=== PATIENT | female | born 1960 | race Caucasian/White ===

== ENCOUNTER 2023-11-19 11:18 | Emergency (ER) | payer BC, SELFPAY ==
[2023-11-19 11:32] VITALS: BP 177/86; PULSE 90; RESP 16; TEMP 37.1; O2SAT 99
--- NOTE | 2023-11-19 13:07 | ED.URI ---
HPI - URI/Sore Throat General Chief Complaint: Upper Respiratory Infection Stated Complaint: Shortness of Breath/Cough/Headache Time Seen by Provider: 11/19/23 12:55 Source: patient, RN notes reviewed and old records reviewed Mode of arrival: ambulatory Limitations: no limitations History of Present Illness HPI Narrative: A 63-year-old female presents to [facility] with increased cough, headache, increased shortness of breath for the past 4-5 days. Patient reports that she has history of asthma and her boyfriend was using some [place] paint aggravated her asthma and has been using her inhaler more since exposure. Patient also reports that she has headache with some white nasal drainage with some occasional flecks of blood noted has been using Flonase nasal pray. Patient reports no known fevers, reports feels increased fatigue and feels achy. MD elicited complaint: cough and other (shortness of breath, headache) Pertinent past history: asthma and seasonal allergies Onset (ago): day(s) (4-5 days) Pain scale (0-10): 4 Description of mucous: other (white some flecks of bloood) Able to tolerate fluids by mouth: Yes Treatments prior to arrival: other (inhalers, flonase) Related Data Home Medications Medication Instructions Recorded Confirmed Symbicort 11/19/23 albuterol sulfate 90 mcg/actuation inhalation 11/19/23 aerosol inhaler alprazolam 0.25 mg tablet mg 11/19/23 amlodipine 5 mg tablet mg 11/19/23 atorvastatin 20 mg tablet mg 11/19/23 epinephrine 0.3 mg/0.3 mL 11/19/23 injection, auto-injector hydrochlorothiazide 25 mg tablet mg 11/19/23 lisinopril 5 mg tablet mg 11/19/23 metformin 500 mg tablet,extended mg PO 11/19/23 release 24 hr potassium citrate 10 mEq (1,080 meq PO 11/19/23 mg) tablet,extended release valacyclovir 1 gram tablet mg 11/19/23 Allergies Allergy/AdvReac Type Severity Reaction Status Date / Time latex Allergy Unknown Verified 11/19/23 12:17 nitrofurantoin Allergy Unknown Verified 11/19/23 12:17 [From Macrobid] nut - unspecified Allergy Anaphylaxis Verified 11/19/23 12:16 Sulfa (Sulfonamide Allergy Other Verified 11/19/23 12:17 Antibiotics) Review of Systems Review of Systems: CONSTITUTIONAL: Denies malaise, chills, sweats, or fever. EYES: Denies visual changes, redness, or discharge. ENT: Reports rhinorrhea, congestion, sinus pain,no otalgia and no sore throat. CARDIOVASCULAR: Denies chest pain, palpitations, or edema. RESPIRATORY: Reports cough.?reports some increased dyspnea. GASTROINTESTINAL: Denies abdominal pain, nausea, vomiting, diarrhea SKIN: Denies rash or itching. MUSCULOSKELETAL: Denies myalgia. NEUROLOGIC:Reports headache. All systems reviewed & are unremarkable except as noted in HPI and below PMFSH Past Medical History Medical History (Updated 11/21/23 @ 10:40 by Deb Escalera NP) Anxiety Asthma Elevated cholesterol Hypertension Social History Social History (Updated 11/21/23 @ 10:39 by Deb Escalera NP) Smoking status: Never smoker Alcohol intake: current Alcohol use details: rare Substance use type: does not use Gender identity (if verbalized by the patient): Female Comments At time of signature, agree with nursing past medical, surgical, social and family history. There is no relevant family history pertinent to the presenting complaint Exam Narrative: GENERAL: Well-appearing, well-nourished, and in no acute distress. HEAD: Normocephalic EYES: PERRLA, conjunctivae clear ENT: Nares clear, turbinates edematous and erythematous, white discharge. Mucous membranes moist. TM pearly burnham with dull light reflex bilaterally; no tragal tenderness. Oropharynx erythematous without lesions. Tonsils not enlarged and without exudate, no drooling, no hoarseness, no trismus, uvula midline.post nasal discharge NECK: Supple. No lymphadenopathy CHEST: coarse to auscultation, breath sounds equal. No wh
== END 2023-11-19 13:14 | disposition home or self-care (01) ==
PROVIDERS: Emergency Provider Registered Nurse
DX: J06.9 Acute upper respiratory infection, unspecified (principal); R05.1 Acute cough; Z20.822 Contact with and (suspected) exposure to COVID-19; J45.909 Unspecified asthma, uncomplicated; E78.00 Pure hypercholesterolemia, unspecified; I10 Essential (primary) hypertension
CPT/HCPCS: 87426; 87804; 99213; G0463